=== PATIENT | female | born 1980 | race Caucasian/White ===

== ENCOUNTER 2016-12-31 22:43 | Emergency (ER) ==
[2016-12-31 22:55] VITALS: BP 137/78
[2016-12-31] MEDS ORDERED: TORADOL IM ONE (23:43)
[2016-12-31] MEDS ORDERED: ZOFRAN ODT PO ONE (23:43)
--- NOTE | 2016-12-31 23:44 | PROVIDER DOCUMENTATION ---
HPI-Headache - General Source: patient - History of Present Illness-Headache Quality of Pain: reports: aching Severity: reports: mild Onset/Duration: reports: this afternoon Timing: reports: still present Headache Context: reports: nothing Headache History: reports: occasional headaches Any recent trauma/injury?: reports: none Headache severity at the maximum: mild Headache Exacerbated by:: reports: light <Julia Sun - Last Filed: 12/31/16 23:42> - History of Present Illness-Headache Headache Location: reports: frontal <Kole Mccabe - Last Filed: 12/31/16 23:47> - General Chief Complaint: Headache Stated Complaint: NATION, NAUSEA Time Seen by Provider: 12/31/16 23:35 Allergies/Adverse Reactions: Patient Allergies Allergy/AdvReac Type Severity Reaction Status Date / Time No Known Allergies Allergy Verified 12/31/16 22:58 Home Medications: Home Medication List Medication Instructions Recorded Confirmed Last Taken Type Duloxetine [Cymbalta] 60 mg PO DAILY 10/23/15 12/31/16 12/30/16 20:00 History Albuterol [Albuterol Neb] 2.5 mg INH PRN PRN 12/31/16 12/31/16 Unknown History Butalb/APAP/Caffeine [Fioricet] 1 each PO Q4H PRN PRN #10 capsule 12/31/16 Unknown Rx Promethazine [Phenergan] 25 mg PO Q6H PRN PRN #20 tablet 12/31/16 Unknown Rx Review of Systems - Adult - REVIEW OF SYSTEMS - ADULT Constitutional: denies: chills, fever Eyes: denies: blurred vision, double vision Ears, Nose, Mouth & Throat: reports: no symptoms reported Cardiovascular: reports: no symptoms reported Respiratory: reports: no symptoms reported Gastrointestinal: reports: nausea. denies: vomiting Genitourinary: reports: no symptoms reported Musculoskeletal: reports: no symptoms reported Integumentary: reports: no symptoms reported Neurological: reports: headache/migraines. denies: dizziness/vertigo Psychiatric: reports: no symptoms reported Endocrine: reports: no symptoms reported Hematologic/Lymphatic: reports: no symptoms reported Allergic/Immunologic: reports: no symptoms reported All Other Systems: Reviewed and Negative <Julia Sun - Last Filed: 12/31/16 23:42> Past History - Adult - PAST MEDICAL HISTORY-ADULT Review of Records: reports: Nursing Assessment Review, Medications Reviewed Major Childhood Illnesses: reports: denies history Respiratory: reports: asthma Psychiatric: reports: anxiety - PRIOR SURGERIES/PROCEDURES Surgical/Procedure History: reports: none - IMMUNIZATION STATUS Childhood Immunizations: See Nurse Assessment Flu Vaccine: See Nurse Assessment - SOCIAL HISTORY Smoking: non-smoker Substance Use: none/never Alcohol Use Frequency: never <Julia Sun - Last Filed: 12/31/16 23:42> Physical Exam- Neurological - Physical Exam-Neuro Initial Vital Signs Reviewed: Yes General Appearance: appears well, alert, no apparent distress Eye Exam: bilateral eye: normal inspection, PERRL, EOMI HENMT: negative: frontal tenderness, maxillary tenderness Head Injury: no evidence of injury Respiratory: chest non-tender, lungs clear, normal breath sounds Cardiovascular: normal peripheral pulses, regular rate, rhythm, no 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 Exam: normal hearing, normal speech, PERRL Motor/Sensory: no motor deficit, no sensory deficit, no pronator drift Neurologic: net development manager II-XII nml as tested, no motor/sensory deficits Integumentary: normal color, normal turgor, warm/dry Psych/Mental Status: normal mood/affect, normal thought content, normal thought process, oriented x 3 <Julia Sun - Last Filed: 12/31/16 23:42> Departure <Julia Sun - Last Filed: 12/31/16 23:42> - Departure Time of Disposition Order: 23:44 Certified Medical Emergency: Emergent <Kole Mccabe - Last Filed: 12/31/16 23:47> - Departure DIAGNOSIS: Migraine Qualifiers: Migraine type: unspecified Status migrainosus presence: without status migrainosus Intractability: not intractable Qualified Code(s): G43.909 - Migraine, unspecified, not intractable, without status migrainosus Disposition: HOME 01 Condition: Good Additional Instructions: follow up with PCP ED Follow Up Instructions: You have been treated by a care provider in the Emergency Department. These instructions are being provided to you so you can have an understanding of how to care for yourself upon discharge. Upon discharge from the Emergency Department, you are responsible for making arrangements for follow-up care by a physician of your choice. Take all prescribed medications as directed. Return to the Emergency Department immediately for any new or worsening symptoms. You may call the Physician Referral phone number at [phone] to obtain a list of Physicians who are taking new patients. Prescriptions: Butalb/APAP/Caffeine [Fioricet] 1 each PO Q4H PRN PRN #10 capsule PRN Reason: Headache Promethazine [Phenergan] 25 mg PO Q6H PRN PRN #20 tablet PRN Reason: Nausea Attestation - Physician/ CINDY Attestation Patient care was provided by Advanced Practice Provider:: Yes Advanced Practice Provider:: Kole Mccabe Advanced Practice Provider documentation review:: The Mid-level provider documentation, treatment plan and medical decision making was reviewed by the physician who agrees with all treatment and medical decision making by the [facility]. <Kole Mccabe - Last Filed: 12/31/16 23:47> Physician Attestation - Physician Attestation I, the provider, attest to the following statement:: Kole Mccabe Physician documentation Attestation:: This documentation recorded by the scribe accurately reflects the service I personally performed and the decisions made by me. <Kole Mccabe - Last Filed: 12/31/16 23:47>
== END 2016-12-31 23:55 | disposition home or self-care (01) ==
LOC: ED 22:43
DX: G43.909 Migraine, unspecified, not intractable, without status migrainosus (principal); R51 Headache; R11.0 Nausea; J45.909 Unspecified asthma, uncomplicated; F41.9 Anxiety disorder, unspecified; Z79.899 Other long term (current) drug therapy
CPT/HCPCS: J1885